=== PATIENT | male | born 1990 | race Caucasian/White ===

== ENCOUNTER 2018-02-28 08:47 | Day surgery (SDC) | payer OTHER ==
[~2018-02-28 08:47] MED LIST: ACETAMINOPHEN 1,000 MG/100 ML BTL IV ONE; FAMOTIDINE 20MG TABLET PO ONE; MECLIZINE 25 MG TABLET PO ONE; METOCLOPRAMIDE 10 MG TABLET PO ONE
[2018-02-28] MEDS ORDERED: PROPOFOL 10 MG/ML VIAL IV ONE (08:48)
[2018-02-28] MEDS ORDERED: ROCURONIUM BROMIDE 50MG/5ML VIAL IV ONE (08:48)
[2018-02-28] MEDS ORDERED: SUCCINYLCHOLINE 20 MG/ML 10ML IVP ONE (08:48)
[2018-02-28] MEDS ORDERED: LIDOCAINE 2% MDV (20MG/ML) 20ML VIAL IV ONE (08:48)
[2018-02-28] MEDS ORDERED: BUPIVACAINE 0.25% W/EPI MPF 30ML VIAL IVP ONE (08:48)
[2018-02-28] MEDS ORDERED: MIDAZOLAM HCL 2MG/2ML VIAL IV ONE (08:48)
[2018-02-28] MEDS ORDERED: DESFLURANE 240 ML BTL INH ONE (08:48)
[2018-02-28] MEDS ORDERED: HYDROCODONE/APAP 5/325MG TABLET PO ONE (08:48)
[2018-02-28] MEDS ORDERED: ONDANSETRON HCL IV 4 MG/2 ML VIAL IVP ONE (08:48)
[2018-02-28] MEDS ORDERED: HYDROMORPHONE HCL 2 MG/ML VIAL IV ONE (08:48)
--- NOTE | 2018-02-28 14:50 | Operative Note ---
DATE OF SURGERY: 02/28/2018 Surgeon: Murphy Felton DO PREOPERATIVE DIAGNOSIS: Intermittent biliary dyskinesia. POSTOPERATIVE DIAGNOSIS: Intermittent biliary dyskinesia. OPERATION: Laparoscopic cholecystectomy. Indication: The patient is a 19-year-old male who has had ongoing right subcostal postprandial pain. Workup included ultrasound and HIDA scan. HIDA scan showed an impaired ejection fraction with a reproduced discomfort. We did discuss cholecystectomy versus medical management. He desired surgical intervention. His risks include but are not limited to bleeding, infection, ductal injury, possible conversion to open, postoperative bile leak, nonresolution of his symptoms. He understood this fully. PROCEDURE: Thereafter, consent was signed and questions answered. He was taken to the operating room and placed in a supine position. General anesthesia was administered per the department of anesthesia. The patient's abdomen was shaved of hair and prepped and draped in the usual sterile fashion. The infraumbilical region was anesthetized with a total of 2 mL of 0.25% Sensorcaine with epinephrine. A 2 cm supaumbilical incision was made. This was carried down to the anterior rectus fascia. This was incised. Francy clamps were placed on the fascial edges and brought up into the wound. Stay sutures of 0 Vicryl were placed. Posterior rectus sheath was identified and incised. The peritoneal cavity was entered bluntly. At this time, a 10 mm blunt Adarsh port was placed. Adequate pneumoperitoneum was established. Under direct visualization, additional 5 mm epigastric and two 5 mm right subcostal ports were placed. Gallbladder identified. It contained dense omental adhesions anteriorly and these were swept inferiorly. The gallbladder was retracted in cephalad and lateral direction opening up the angle of Calot. The hepatocystic triangle was thoroughly dissected out. There was no aberrant anatomy, no posterior ductal structures. The cystic duct and cystic artery were clearly identified. Distal half of the gallbladder was released from the cystic plate elongating the retroductal window. We had excellent critical view of safety after all tissue was cleared. The cystic duct and cystic artery were doubly clipped and cut in a standard fashion. Gallbladder was then taken off the liver bed with Taran harmonic. This was extracted through the umbilical port. Right upper quadrant was rechecked and found to be hemostatic. No bleeding. No bile leak. No bowel injury noted. The patient was leveled out. The pneumoperitoneum was released. All ports were removed. The fascia was closed with 0 Vicryl in a [id number] fashion. The skin at all ports was closed with 4-0 Vicryl. The patient was taken to the recovery room in satisfactory condition. CC: DO WILMER Milan
== END 2018-02-28 11:40 | disposition home or self-care (01) ==
LOC: SUR 08:47
PROVIDERS: ATTEND Surgery
DX: K82.8 Other specified diseases of gallbladder (principal)
CPT/HCPCS: 47562; 00790; J2405; J1170; J0330